=== PATIENT | female | born 1960 | race Caucasian/White ===

== ENCOUNTER → 2022-10-21 | Outpatient (CLI) | payer BC, SELFPAY ==
[2022-10-21 16:07] LABS: Pathologist Comment May follow
[2022-10-21 17:19] LABS: Synovial Fld Mononuclear WBC # 0.223 10^3/ul; Synovial Fld Mononuclear WBC % 96.5 %; Synovial Fld Polynuclear WBC # 0.008 10^3/uL; Synovial Fld Polynuclear WBC % 3.5 %
[2022-10-21 20:27] LABS: AUTO B FLUID DILUENT BKGD CT WBC <0.1 RBC <0.01 (W<.1,R<.01); CRYSTALS, BODY FLUID NO CRYSTALS SEEN; Lymph 27 %; Monocyte /Synovial Fluid 41 %; Other Cell /Synovial Fluid 32 %; Source / Synovial Fluid LEFT KNEE; Source- Body Fluid SYNOVIAL
[2022-10-21 20:28] LABS: Appearance /Synovial Fluid Sl Cl (CLEAR); Color / Synovial Fluid Straw (Pale Yellow); RBC /Synovial Fluid 107 /mm3 (0)
[2022-10-21 20:30] LABS: Body Fluid QC Type(s) BF2Q,BF3Q
[2022-10-25 09:04] LABS: Pathologist Review Reviewed
== END | disposition home or self-care (01) ==
LOC: LABSPEC 15:45
PROVIDERS: Visit Provider Internal Medicine Rheumatology
DX: M06.00 Rheumatoid arthritis without rheumatoid factor, unspecified site (principal); M25.562 Pain in left knee
CPT/HCPCS: 87070; 87075; 87205; 89050; 89051; 89060